=== PATIENT | male | born 1955 | race Two or more races ===

== ENCOUNTER 2020-07-26 15:37 | Emergency (ER) | payer SELFPAY ==
[~2020-07-26] VITALS: Ht 167.6 cm; Wt 79.4 kg
[2020-07-26 15:49] VITALS: BP 113/80
== END 2020-07-26 22:28 | disposition left against medical advice (07) ==
LOC: ER 15:37
DX: H57.89 Other specified disorders of eye and adnexa (principal); Z53.21 Procedure and treatment not carried out due to patient leaving prior to being seen by health care provider